=== PATIENT | female | born 1960 | race African-American/Black ===

== ENCOUNTER 2019-05-03 15:14 | Inpatient (IN) | payer BC ==
[~2019-05-03] VITALS: Ht 154.9 cm; Wt 64.9 kg
[2019-05-03] MEDS ORDERED: ASPI-1160 PO (16:45)
[2019-05-03] MEDS ORDERED: ASPIRIN 81MG TABLET PO ONE (18:30)
[2019-05-03 19:33] LABS: BASOPHILS % 1.4 % (0.0-2.0); CHLORIDE 110 mEq/L (98-107); EOSINOPHILS % 1.7 % (0.0-5.0); HEMATOCRIT. 38.7 % (36.0-48.0); HEMOGLOBIN. 12.4 g/dL (12.0-16.0); LYMPHOCYTES % 37.5 % (20.0-50.0); MEAN CORPUSCULAR HEMOGLOBIN 28.3 pg (28.0-32.0); MEAN CORPUSCULAR VOLUME 88.1 fL (81.0-99.0); MEAN PLATELET VOLUME 8.9 fl (7.4-10.4); MONOCYTES % 10.5 % (2.0-8.0); NEUTROPHILS % 48.9 % (40.0-76.0); PLATELET 232 x1000/uL (130-400); RED BLOOD CELL COUNT 4.39 mill/uL (4.2-5.4); RED CELL DISTRIBUTION WIDTH 15.1 % (11.6-14.6)
[2019-05-03 19:34] LABS: PARTIAL THROMBOPLASTIN TIME 26.1 sec (23.4-31.0); PROTHROMBIN TIME 10.5 sec (9.6-11.0)
[2019-05-03] MEDS ORDERED: FUROSEMIDE 40MG/4ML VIAL IVP ONE (20:15)
[2019-05-04 03:06] VITALS: BP 141/94
[2019-05-04] MEDS ORDERED: DEXTROSE 50% WATER 50ML SYRINGE IV PRN (03:15)
[2019-05-04 04:00] VITALS: BP 122/72
[2019-05-04] MEDS: BLOOD SUGAR DIAGNOSTIC STRIP TEST SCH ×4 (06:42→21:00)
[2019-05-04] MEDS: INSULIN LISPRO 100 UNITS/ML SUBCUT SCH ×4 (06:42→21:00)
[2019-05-04 08:00] VITALS: BP 124/74
[2019-05-04] MEDS ORDERED: ASPIRIN 81MG TABLET PO SCH (09:00)
[2019-05-04] MEDS ORDERED: ENOXAPARIN 40MG/0.4ML SYR SUBCUT SCH (09:00)
[2019-05-04] MEDS: CARVEDILOL 3.125 MG TABLET PO SCH ×2 (09:00→21:53)
[2019-05-04] MEDS ORDERED: FUROSEMIDE 40MG/4ML VIAL IVP SCH (09:00)
[2019-05-04] MEDS ORDERED: LISINOPRIL 20MG TABLET PO SCH (09:00)
[2019-05-04 12:00] VITALS: BP 114/75
[2019-05-04] MEDS ORDERED: KETOROLAC 15MG/ML VIAL IV PRN (15:30)
[2019-05-04 16:00] VITALS: BP 115/79
[2019-05-04 20:00] VITALS: BP 120/90
[2019-05-04] MEDS ORDERED: LISINOPRIL 10MG TABLET PO SCH (21:00)
[2019-05-04 22:48] LABS: HEPATITIS B SURFACE ANTIGEN NEGATIVE
[2019-05-04 23:45] LABS: CLARITY URINE CLEAR (CLEAR); COLOR URINE YELLOW (YELLOW); KETONES URINE NEGATIVE (NEGATIVE); LEUKOCYTE ESTERASE URINE TRACE (NEGATIVE); NITRITE URINE NEGATIVE (NEGATIVE); OCCULT BLOOD URINE NEGATIVE (NEGATIVE); PROTEIN URINE NEGATIVE (NEGATIVE); SPECIFIC GRAVITY URINE 1.018 (1.005-1.030); UROBILINOGEN URINE 0.2 E.U./dL (0.2-1.0)
[2019-05-05] VITALS: BP 123/91
[2019-05-05 00:53] LABS: *AMPHETAMINES SCREEN URINE NEGATIVE (NEGATIVE); *BARBITURATES SCREEN URINE NEGATIVE (NEGATIVE); *BENZODIAZEPINES SCREEN URINE NEGATIVE (NEGATIVE); *COCAINE SCREEN URINE NEGATIVE (NEGATIVE); METHADONE URINE SCREEN NEGATIVE (NEGATIVE)
[2019-05-05 00:55] LABS: CANNABINOID URINE SCREEN NEGATIVE (NEGATIVE); OPIATES URINE SCREEN NEGATIVE (NEGATIVE); PHENCYCLIDINE URINE SCREEN NEGATIVE (NEGATIVE)
[2019-05-05 01:31] LABS: HEPATITIS A AB IGM NEGATIVE (NEGATIVE)
[2019-05-05 04:00] VITALS: BP 134/96
[2019-05-05 07:18] LABS: CHLORIDE 109 mEq/L (98-107)
[2019-05-05 07:26] LABS: BASOPHILS % 1.1 % (0.0-2.0); EOSINOPHILS % 2.8 % (0.0-5.0); HEMATOCRIT. 36.6 % (36.0-48.0); HEMOGLOBIN. 12.1 g/dL (12.0-16.0); LYMPHOCYTES % 42.6 % (20.0-50.0); MEAN CORPUSCULAR HEMOGLOBIN 29.1 pg (28.0-32.0); MEAN CORPUSCULAR VOLUME 87.8 fL (81.0-99.0); MEAN PLATELET VOLUME 9.8 fl (7.4-10.4); MONOCYTES % 11.1 % (2.0-8.0); NEUTROPHILS % 42.4 % (40.0-76.0); PLATELET 224 x1000/uL (130-400); RED BLOOD CELL COUNT 4.16 mill/uL (4.2-5.4); RED CELL DISTRIBUTION WIDTH 14.9 % (11.6-14.6)
== END 2019-05-05 06:01 | disposition left against medical advice (07) | DRG 205 ==
LOC: ER 15:14 → EDBEDREQ 18:37 → 8WST 20:14 → EDBEDREQ 20:18 → EDBEDREQTM 20:18 → ENRESERV 21:46
PROVIDERS: ADMIT Internal Medicine; ATTEND Internal Medicine
DX: M94.0 Chondrocostal junction syndrome [Tietze] (principal); I50.43 Acute on chronic combined systolic (congestive) and diastolic (congestive) heart failure; Z53.29 Procedure and treatment not carried out because of patient's decision for other reasons; E11.9 Type 2 diabetes mellitus without complications; E87.8 Other disorders of electrolyte and fluid balance, not elsewhere classified; Z90.710 Acquired absence of both cervix and uterus; Z88.1 Allergy status to other antibiotic agents; Z88.2 Allergy status to sulfonamides; Z98.51 Tubal ligation status; Z79.899 Other long term (current) drug therapy
CPT/HCPCS: 36415; 71045; 80048; 80061; 80305; 81003; 82962; 83036; 83880; 84145; 84443; 84484; 86705; 86709; 86803; 87340; 93005; 99285; J1650; J1815

== ENCOUNTER 2019-05-28 18:35 | Emergency (ER) | payer BC ==
[~2019-05-28] VITALS: Ht 162.6 cm; Wt 61.8 kg
[~2019-05-28 18:35] MED LIST: ASPI-1160 PO
[2019-05-28 19:02] LABS: EOSINOPHILS % 0.5 % (0.0-5.0); HEMOGLOBIN. 12.2 g/dL (12.0-16.0); LYMPHOCYTES % 12.1 % (20.0-50.0); MEAN CORPUSCULAR HEMOGLOBIN 28.2 pg (28.0-32.0); MEAN CORPUSCULAR VOLUME 85.8 fL (81.0-99.0); MEAN PLATELET VOLUME 9.1 fl (7.4-10.4); MONOCYTES % 7.1 % (2.0-8.0); NEUTROPHILS % 79.3 % (40.0-76.0); PLATELET 207 x1000/uL (130-400); RED BLOOD CELL COUNT 4.32 mill/uL (4.2-5.4)
[2019-05-28 19:09] LABS: CHLORIDE 110 mEq/L (98-107)
[2019-05-28 19:13] LABS: ETHANOL BLOOD < 10 mg/dL
[2019-05-28] MEDS ORDERED: ASPIRIN 81MG TABLET PO ONE (19:30)
[2019-05-28] MEDS ORDERED: IOHEXOL-350 100 ML BOTTLE ONE (20:19)
[2019-05-28 20:50] VITALS: BP 135/73
== END 2019-05-28 21:06 | disposition short-term general hospital (02) ==
LOC: ER 18:35
DX: I63.9 Cerebral infarction, unspecified (principal); E11.9 Type 2 diabetes mellitus without complications; I50.9 Heart failure, unspecified; Z79.82 Long term (current) use of aspirin; Z88.2 Allergy status to sulfonamides; Z88.1 Allergy status to other antibiotic agents; Z98.51 Tubal ligation status
CPT/HCPCS: 36415; 70450; 70496; 70498; 80053; 80320; 85025; 93005; 99291; Q9967; G0480